=== PATIENT | female | born 1960 | race Caucasian/White ===

== ENCOUNTER 2024-10-30 12:57 | Outpatient (REF) | payer BC, SELFPAY ==
--- NOTE | ~2024-10-30 | US_ITS ---
Procedure: 1. Endovascular ablation of the right greater saphenous vein 2. Ultrasound-guided foam sclerotherapy right lower extremity varicose veins HISTORY: Varicose veins INDICATIONS: Symptomatically varicose veins left lower extremity. Symptoms include pain, aching and active ulceration at the ankle (C6) PROCEDURE/FINDINGS: Informed consent was obtained following a discussion of the risks and benefits of the procedure with the patient. The patient was placed supine on the ultrasound procedure table. Preliminary ultrasound demonstrates dilated refluxing right greater saphenous vein as well as numerous branch varicosities above and below the knee. Sites were marked on the right anterior thigh and medial leg . The right leg was sterilely prepped and draped. Following the administration of 1% lidocaine for local anesthesia, the greater saphenous vein was accessed with a 21-gauge micropuncture needle under direct ultrasound guidance. The needle was exchanged for the transitional dilator over a 0.018 guidewire. A 0.035 guidewire was then advanced to the saphenofemoral junction. The VenaSeal sheath was then inserted over the wire and positioned 10 cm from the saphenofemoral junction. VenaSeal glue was then delivered along the length of the greater saphenous vein while retracting the catheter with compression at the saphenofemoral junction to prevent glue from traveling forward. The delivery device was removed and hemostasis was achieved with manual compression. Postprocedure ultrasound demonstrates successful occlusion of the treated veins with widely patent and compressible saphenofemoral junction. Then, the branch varicosities above the knee and [id number]-[id number] were accessed with 2 separate 23-gauge butterfly needles under direct ultrasound guidance. Sclerotherapy was performed at both sites using 1% Sotradecol and a 1-4 ratio with room air. Treated veins include branch varicosities of the ASD as well as branch varicosities of the GSV. The accesses were removed. Posttreatment ultrasound demonstrates successful occlusion of the treated veins. A compression stocking was applied to the treated area Patient tolerated the procedure well without immediate complication. US/US Vein Inj Sclerosant Multi IMPRESSION: 1. VenaSeal ablation of the right greater saphenous vein. 2. Ultrasound-guided foam sclerotherapy right lower extremity varicose veins Follow-up ultrasound in 5-10 days Electronically signed by: Epifanio Scott MD 10/30/2024 03:28 PM [facility] [place] [place]
--- NOTE | ~2024-10-30 | US_ITS ---
Procedure: 1. Endovascular ablation of the right greater saphenous vein 2. Ultrasound-guided foam sclerotherapy right lower extremity varicose veins HISTORY: Varicose veins INDICATIONS: Symptomatically varicose veins left lower extremity. Symptoms include pain, aching and active ulceration at the ankle (C6) PROCEDURE/FINDINGS: Informed consent was obtained following a discussion of the risks and benefits of the procedure with the patient. The patient was placed supine on the ultrasound procedure table. Preliminary ultrasound demonstrates dilated refluxing right greater saphenous vein as well as numerous branch varicosities above and below the knee. Sites were marked on the right anterior thigh and medial leg . The right leg was sterilely prepped and draped. Following the administration of 1% lidocaine for local anesthesia, the greater saphenous vein was accessed with a 21-gauge micropuncture needle under direct ultrasound guidance. The needle was exchanged for the transitional dilator over a 0.018 guidewire. A 0.035 guidewire was then advanced to the saphenofemoral junction. The VenaSeal sheath was then inserted over the wire and positioned 10 cm from the saphenofemoral junction. VenaSeal glue was then delivered along the length of the greater saphenous vein while retracting the catheter with compression at the saphenofemoral junction to prevent glue from traveling forward. The delivery device was removed and hemostasis was achieved with manual compression. Postprocedure ultrasound demonstrates successful occlusion of the treated veins with widely patent and compressible saphenofemoral junction. Then, the branch varicosities above the knee and guklb-[id number] were accessed with 2 separate 23-gauge butterfly needles under direct ultrasound guidance. Sclerotherapy was performed at both sites using 1% Sotradecol and a 1-4 ratio with room air. Treated veins include branch varicosities of the ASD as well as branch varicosities of the GSV. The accesses were removed. Posttreatment ultrasound demonstrates successful occlusion of the treated veins. A compression stocking was applied to the treated area Patient tolerated the procedure well without immediate complication. US/US venaseal vein closure IMPRESSION: 1. VenaSeal ablation of the right greater saphenous vein. 2. Ultrasound-guided foam sclerotherapy right lower extremity varicose veins Follow-up ultrasound in 5-10 days Electronically signed by: Epifanio Scott MD 10/30/2024 03:28 PM [facility]
== END 2024-10-30 12:58 | disposition home or self-care (01) ==
LOC: HO.US 12:57
PROVIDERS: PCP Neuromusculoskeletal Medicine, Sports Medicine; Visit Provider Student in an Organized Health Care Education/Training Program
DX: I83.013 Varicose veins of right lower extremity with ulcer of ankle (principal)
CPT/HCPCS: 36471; 36482

== ENCOUNTER → 2024-10-30 13:00 | Outpatient (BNV) | payer BC, SELFPAY | PROVIDERS: PCP Neuromusculoskeletal Medicine, Sports Medicine; Visit Provider Student in an Organized Health Care Education/Training Program | DX: I83.013 Varicose veins of right lower extremity with ulcer of ankle (principal) | CPT/HCPCS: 36471; 36482; 76942 ==

== ENCOUNTER 2024-11-03 12:31 | Outpatient (REF) | payer BC, SELFPAY ==
--- NOTE | ~2024-11-03 | US_ITS ---
Procedure: 1. Endovascular ablation of the left greater saphenous vein 2. Ultrasound-guided foam sclerotherapy left lower extremity varicose veins HISTORY: Varicose veins INDICATIONS: Symptomatically varicose veins bilateral lower extremity. Symptoms include pain, aching , swelling and active ulceration at the right ankle (C6), C4 left) PROCEDURE/FINDINGS: Informed consent was obtained following a discussion of the risks and benefits of the procedure with the patient. The patient was placed supine on the ultrasound procedure table. Preliminary ultrasound demonstrates dilated refluxing left greater saphenous vein as well as numerous branch varicosities above and below the knee. Sites were marked on the left anterior thigh and medial leg . The left leg was sterilely prepped and draped. Following the administration of 1% lidocaine for local anesthesia, the greater saphenous vein was accessed with a 21-gauge micropuncture needle under direct ultrasound guidance. The needle was exchanged for the transitional dilator over a 0.018 guidewire. A 0.035 guidewire was then advanced to the saphenofemoral junction. The VenaSeal sheath was then inserted over the wire and positioned 10 cm from the saphenofemoral junction. VenaSeal glue was then delivered along the length of the greater saphenous vein while retracting the catheter with compression at the saphenofemoral junction to prevent glue from traveling forward. The delivery device was removed and hemostasis was achieved with manual compression. Postprocedure ultrasound demonstrates successful occlusion of the treated veins with widely patent and compressible saphenofemoral junction. Then, the branch varicosities above the knee were accessed with 2 separate 23-gauge butterfly needles under direct ultrasound guidance. Sclerotherapy was performed at both sites using 1% Sotradecol and a 1-4 ratio with room air. Treated veins include branch varicosities of the GSV. The accesses were removed. Posttreatment ultrasound demonstrates successful occlusion of the treated veins. A compression stocking was applied to the treated area Patient tolerated the procedure well without immediate complication. US/US Vein Inj Sclerosant Multi IMPRESSION: 1. VenaSeal ablation of the left greater saphenous vein. 2. Ultrasound-guided foam sclerotherapy left lower extremity varicose veins Follow-up ultrasound in 5-10 days Electronically signed by: Epifanio Scott MD 11/03/2024 02:25 PM [facility]
--- NOTE | ~2024-11-03 | US_ITS ---
Procedure: 1. Endovascular ablation of the left greater saphenous vein 2. Ultrasound-guided foam sclerotherapy left lower extremity varicose veins HISTORY: Varicose veins INDICATIONS: Symptomatically varicose veins bilateral lower extremity. Symptoms include pain, aching , swelling and active ulceration at the right ankle (C6), C4 left) PROCEDURE/FINDINGS: Informed consent was obtained following a discussion of the risks and benefits of the procedure with the patient. The patient was placed supine on the ultrasound procedure table. Preliminary ultrasound demonstrates dilated refluxing left greater saphenous vein as well as numerous branch varicosities above and below the knee. Sites were marked on the left anterior thigh and medial leg . The left leg was sterilely prepped and draped. Following the administration of 1% lidocaine for local anesthesia, the greater saphenous vein was accessed with a 21-gauge micropuncture needle under direct ultrasound guidance. The needle was exchanged for the transitional dilator over a 0.018 guidewire. A 0.035 guidewire was then advanced to the saphenofemoral junction. The VenaSeal sheath was then inserted over the wire and positioned 10 cm from the saphenofemoral junction. VenaSeal glue was then delivered along the length of the greater saphenous vein while retracting the catheter with compression at the saphenofemoral junction to prevent glue from traveling forward. The delivery device was removed and hemostasis was achieved with manual compression. Postprocedure ultrasound demonstrates successful occlusion of the treated veins with widely patent and compressible saphenofemoral junction. Then, the branch varicosities above the knee were accessed with 2 separate 23-gauge butterfly needles under direct ultrasound guidance. Sclerotherapy was performed at both sites using 1% Sotradecol and a 1-4 ratio with room air. Treated veins include branch varicosities of the GSV. The accesses were removed. Posttreatment ultrasound demonstrates successful occlusion of the treated veins. A compression stocking was applied to the treated area Patient tolerated the procedure well without immediate complication. US/US venaseal vein closure IMPRESSION: 1. VenaSeal ablation of the left greater saphenous vein. 2. Ultrasound-guided foam sclerotherapy left lower extremity varicose veins Follow-up ultrasound in 5-10 days Electronically signed by: Epifanio Scott MD 11/03/2024 02:[address] [facility]
--- OUTSIDE RECORDS SUMMARY | 2024-11-03 14:31 | XMS_ITS | Encounter Summary ---
Author Organization [facility] Address [address] [place] [address] Care Team Providers Care Burlap Spreader Name Role Phone Desiree Alas PA-C Primary Care Provi sherin Encounter Details Date Type Department Care Team (Late st Contact Info) Description 10/25/[address] [phone] Desiree Alas PA-C [address] [place] [phone] Social History Tobacco Use Types Packs/Day Years Used Date Smoking Tobacco: Never Smokeless Tobacco: Never Alcohol Use Standard Drinks/Week Comments Never 0 (1 standard drink = 0.6 oz pur e alcohol) PHQ-2 Answer Date Recorded PHQ-2 Total Score 0 10/23/2024 Sex and Gender Information Value Date Recorded Sex Assigned at Female 10/23/2024 11:03 AM EST Gender Identity Female 01/10/2021 5:51 PM EDT Sexual Orientation Heterosexual (straight) 01/10 5:51 PM EDT documented as of this encounter Miscellaneous Notes * Telephone Encounter - Kamilla Milian MA - 10/26/2024 3:42 PM EST Spoke with Johanna and she is aware of labs and not to do Cholesterol panel. * Telephone Encounter - Kamilla Milina MA - 10/26/2024 9:36 AM EST Left message for Johanna to call for lab results. * Telephone Encounter - Desiree Alas PA-C - 10/25/2024 7:50 AM EST Please let patient know that I received the blood work done by her employer. They checked a cholesterol and a fasting blood sugar. I presume she was fasting for her cholesterol. It is little up but we will discuss it at her physical just watch diet and exercise. I do want her to have the rest of her blood work done at [facility]. When she does go there she can tell them not to dothe cholesterol panel because it was already done the rest of the stuff should be covered by insurance and is necessary. documented in this encounter Plan of Treatment Upcoming Encounters Date Type Department Care Team (Late st Contact Info) Description 01/25/2025 9:00 AM EDT Office Visit [address] [place] [address] Desiree Alas PA-C [address] [place] [address] documented as of this encounter Visit Diagnoses Not on filedocumented in this encounter Care Teams Burlap Spreader Relationship Specialty Start Date End Date Desiree Alas PA-C [address] [place] [address] PCP - General Internal Medicine 10/23/24 documented as of this encounter
--- OUTSIDE RECORDS SUMMARY | 2024-11-03 14:31 | XMS_ITS | Clinical Summary ---
Author Organization [facility] Address [address] [place] [address] Care Team Providers Care Commercial Sewing Instructor Name Role Phone Desiree Alas PA-C Primary Care Provi sherin Allergies Active Allergy Reactions Criticality Noted Date Comments Meperidine Nausea And Vomiting 09/25/2013 Medications Medication Sig Dispensed Refills Start Date End Date Status gabapentin (NEURONTIN) 300 MG capsule 1 capsule (300 mg total). 10/18/2024 Active Active Problems Problem Noted Date Diagnosed Date Obesity (BMI 30-39.9) 12/02/2015 Venous stasis of lower extremity 05/03/2015 Hypothyroidism 09/25/2013 Encounters Date Type Department Care Team Description 10/25/[address] [phone] Desiree Alas PA-C 10/23/2024 11:30 AM EST Office Visit [address] [phone] Desiree Alas PA-C Hypothyroidism, unspecified type (Primary Dx); Obesity (BMI 30-39.9); Venous stasis of lower extremity; Screen for colon cancer 10/23/[address] [phone] Desiree Alas PA-C 10/23/2024 Travel from Last 3 Months Immunizations Name Administration Dates Next Due Covid-19 MRNA Vaccine - Pfizer 12+ (Purple Cap) 03/01/2021,02/08/2021 Family History Medical History Relation Name Comments Chronic Kidney Disease Father Diabetes Father Relation Name Status Comments Father Social History Tobacco Use Types Packs/Day Years Used Date Smoking Tobacco: Never Smokeless Tobacco: Never Tobacco Cessation:Counseling Given: Not Answered Alcohol Use Standard Drinks/Week Comments Never 0 (1 standard drink = 0.6 oz pur e alcohol) PHQ-2 Answer Date Recorded PHQ-2 Total Score 0 10/23/2024 Sex and Gender Information Value Date Recorded Sex Assigned at Female 10/23/2024 11:03 AM EST Gender Identity Female 01/10/2021 5:51 PM EDT Sexual Orientation Heterosexual (straight) 01/10 5:51 PM EDT Last Filed Vital Signs Vital Sign Reading Time Taken Comments Blood Pressure 152/80 10/23/2024 12:08 PM EST Pulse 76 10/23/2024 11:16 AM EST Temperature 36.3 ??C (97.3 ??F) 10/23/2024 1 1:16 AM EST Respiratory Rate 17 10/23/2024 11:1 6 AM EST Oxygen Saturation 98% 10/23/2024 11: 16 AM EST Inhaled Oxygen Concentration - - Weight 94.3 kg (207 lb 12.8 oz) 025 11:16 AM EST Height 154.9 cm (5' 1 ) 10/23/2024 11:1 6 AM EST Body Mass Index 39.26 10/23/2024 11:16 AM EST Plan of Treatment Upcoming Encounters Date Type Department Care Team (Late st Contact Info) Description 01/25/2025 9:00 AM EDT Office Visit [address] [phone] Desiree Alas PA-C [address] [place] [address] Health Maintenance Due Date Last Done Comments Hepatitis C Virus Screening 1960 HIV Screening 1975 Physical 1980 DTaP/Tdap/Td Vaccines (1 - Tdap) 1981 Pap Smear (Ages 21-65) 1983 Mammogram 2002 Colonoscopy 2007 Pneumococcal Vaccines 50+ (1 of 1 - PCV) 2012 Zoster (Shingles) Vaccine (1 of 2) 2012 Influenza Vaccine 05/11/2024 COVID-19 Vaccine (3 2023-2 5 season) 2024 03/01/2021, 02/08/2021 RSV Vaccine 60 years and older and Patients (1 - 1-dose 75+ series) 2037 Hepatitis B Vaccines Aged Out No long er eligible based on patient's age to complete this topic Care Teams Commercial Sewing Instructor Relationship Specialty Start Date End Date Desiree Alas PA-C [address] [place] [address] PCP - General Internal Medicine 10/23/24
--- OUTSIDE RECORDS SUMMARY | 2024-11-03 14:31 | XMS_ITS | Encounter Summary ---
Author Organization [facility] Address [address] [place] [address] Care Team Providers Care Artificial Glass Eye Maker Name Role Phone Desiree Alas PA-C Primary Care Provi hserin Encounter Details Date Type Department Care Team (Latest Contact Info) Description 10/23/2024 Travel Social History Tobacco Use Types Packs/Day Years [...] PM EDT documented as of this encounter Plan of Treatment Upcoming Encounters Date Type Department Care Team (Late st Contact Info) Description 01/25/2025 9:00 AM EDT Office Visit [address] [place] [phone] Desiree Alas PA-C [address] [place] [address] documented as of this encounter Visit Diagnoses Not on filedocumented in this encounter Care Teams Artificial Glass Eye Maker Relationship Specialty Start Date End Date Desiree Alas PA-C [address] [place] [address] PCP - General Internal Medicine 10/23/24 documented as of this encounter
--- OUTSIDE RECORDS SUMMARY | 2024-11-03 14:31 | XMS_ITS | Clinical Summary ---
Author Organization [facility] Address [address] [place] [address] Care Team Providers Care Accounts Receivable Associate Name Role Phone Roxy Toure PA-C Primary Care Provider Allergies Active Allergy Reactions Criticality Noted Date Comments Meperidine Nausea And Vomiting 05/03/2015 Medications No known medications Active Problems Problem Noted Date Diagnosed Date Obesity (BMI 30-39.9) 12/02/2015 Venous stasis of lower extremity 05/03/2015 Family History Medical History Relation Name Comments Coronary artery disease Father sten ts Diabetes Father Diabetes Son Relation Name Status Comments Father Son Social History Tobacco Use Types Packs/Day Years Used Date Smoking Tobacco: Never Alcohol Use Standard Drinks/Week Comments No 0 (1 standard drink = 0.6 oz pur e alcohol) Sex and Gender Information Value Date Recorded Sex Assigned at Not on file Gender Identity Not on file Sexual Orientation Not on file Job Start Date Occupation Industry Not on file Not on file Not on file Last Filed Vital Signs Vital Sign Reading Time Taken Comments Blood Pressure 122/84 12/02/2015 7:48 AM EST Pulse 76 12/02/2015 7:48 AM EST Temperature - - Respiratory Rate 18 12/02/2015 7:48 AM EST Oxygen Saturation - - Inhaled Oxygen Concentration - - Weight 88.5 kg (195 lb) 12/02/2015 7:48 AM EST Height 156.2 cm (5' 1.5 ) 12/02/2015 7:48 AM EST Body Mass Index 36.25 12/02/2015 7:48 AM EST Plan of Treatment Health Maintenance Due Date Last Done Comments Hepatitis C Screening 1960 Depression Screening 1974 DTap / Tdap / Td (1 - Tdap) 1981 Cervical Cancer Screening (Pap Smear) 1983 Colon Cancer Screening (Colonoscopy) 2007 Breast Cancer Screening (Mammogram) 2012 Shingrix-Zoster Vaccine (1 o f 2) 2012 Preventative Health Evaluation 12/02/2016 12/02/2015 COVID-19 Vaccine (3 - 2023-2 5 season) 2024 03/01/2021, 02/08/2021 Influenza Vaccine (#1) 2024 RSV Adult > 60+ Yrs or (1 - 1-dose 75+ series) 2037 Hepatitis B Vaccines Aged Out No long er eligible based on patient's age to complete this topic Pneumococcal Vaccine Aged Out No long er eligible based on patient's age to complete this topic RSV Ped < 20 months Aged Out No longe r eligible based on patient's age to complete this topic Care Teams Accounts Receivable Associate Relationship Specialty Start Date End Date Roxy Toure PA-C PCP - General Family Medicine 05/03/15
--- OUTSIDE RECORDS SUMMARY | 2024-11-03 14:31 | XMS_ITS | Clinical Summary ---
Author Organization [facility] Address [address] [place] [address] Phone Care Team Providers Care Utility Clerk Name Role Phone Roxy Toure Primary Care Provider [phone] Encounters Date Type Department Care Team Description 08/04/2024 2:15 PM EDT - 08/04/2024 11:59 PM EDT Hospital Encounter [facility] Ultrasound [address] [place] [phone] Child, HO Godfrey Venous insufficiency (chronic) (peripheral) Discharge Disposition: Home or Self Care from Last 3 Months Immunizations Name Administration Dates Next Due Pfizer SARS-CoV-2 COVID-19, mRNA, LNP-S, preservative free 03/01/2021,02/08/2021 Social History Tobacco Use Types Packs/Day Years Used Date Smoking Tobacco: Never Assessed Sex and Gender Information Value Date Recorded Sex Assigned at Not on file Gender Identity Not on file Sexual Orientation Not on file Plan of Treatment Health Maintenance Due Date Last Done Comments Breast Cancer Screening 1960 DTaP,Tdap,and Td Vaccines (1 - Tdap) 1981 Cervical Cancer Screening: P ap Smear 1983 Zoster Vaccines (1 of 2) 2012 Cholesterol Screening (Lipid Panel) 11/10/2023 Colorectal Cancer Screening: Colonoscopy 11/10/2023 Depression Screening 11/10/2023 HIV Screening 11/10/2023 Hepatitis C Screening 11/10/2023 Social Influencers of Health Screening 11/10/2023 COVID-19 Vaccine (3 - 2023-2 5 season) 2024 03/01/2021, 02/08/2021 Influenza Vaccine (#1) 2024 RSV Immunization Patients 60 + Years Old (1 - 1-dose 75+ series) 2037 HIB Vaccines Aged Out No longer eligi ble based on patient's age to complete this topic HPV Vaccines Aged Out No longer eligi ble based on patient's age to complete this topic Hepatitis A Vaccines Aged Out No long er eligible based on patient's age to complete this topic Hepatitis B Vaccines Aged Out No long er eligible based on patient's age to complete this topic IPV Vaccines Aged Out No longer eligi ble based on patient's age to complete this topic MMR Vaccines Aged Out No longer eligi ble based on patient's age to complete this topic Meningococcal ACWY Vaccine Aged Out N o longer eligible based on patient's age to complete this topic Pneumococcal Vaccine: Pediatrics (0 to 5 Years) and At-Risk Patients (6 to 64 Years) Aged Out No longer eligible b ased on patient's age to complete this topic RSV Immunization Patients Under 20 months Aged Out No longer eligible b ased on patient's age to complete this topic Varicella Vaccines Aged Out No longer eligible based on patient's age to complete this topic Procedures Procedure Name Priority Date/Time Associated Diagnosis Comments US DUPLEX VENOUS STUDY BILAT Routine 08/04/2024 4:38 PM EDT Venous insufficiency (chronic) (peripheral) from Last 3 Months Results * US DUPLEX VENOUS STUDY BILAT (08/04/2024 4:38 PM EDT) Anatomical Region Laterality Modality Ultrasound 08/04/2024 2:21 PM EDT Narrative 08/04/2024 4:38 PM EDT [facility] Diagnostic Imaging Department [address] [place] [id number] Patient: ??MARTA RENNER ?/Age/Sex: 1960 - 63 - F Unit#: ??[id number] ? Location/Status: ??SPDIUS/REG CLI ? Mnemonic/Ordering Site: ??DUPVEBILCO/SPUS Ordering Physician: ??CHILD,EPIFANIO TAYLOR Duplex Venous Study Bilat - 08/04/24 - 1499 Report Status:Signed PROCEDURE: US Duplex Venous Study Bilat INDICATION: Leg pain, wounds TECHNIQUE: ??2-D matias scale, color Doppler ultrasound of the lower extremity veins. COMPARISON: No priors available. FINDINGS: The deep veins of the right lower extremity are patent. The right greater saphenous vein measures 7 mm in the upper thigh, 4 mm in the mid thigh, and 6 mm in the lower thigh. There is 5 seconds reflux in the greater saphenous vein in the lower thigh. There is 2 to 3 seconds reflux in the greater saphenous vein throughout the calf. No reflux in the right short saphenous vein. Multiple refluxing varicosities are seen in the right mid thigh with reflux measuring 4 to 5 seconds. The deep veins of the left lower extremity are patent. The left greater saphenous vein measures 7 mm in the upper thigh. ??The greater saphenous vein in the mid and lower thigh is replaced by multiple varicosities. There is approximately 2 to 3 seconds of reflux at the left greater saphenous vein near the saphenofemoral junction. ??There is 2 to 3 seconds of reflux throughout the greater saphenous vein and associated varicosities throughout the thigh and calf . No reflux in the left short saphenous vein. IMPRESSION: NO DEEP VENOUS THROMBOSIS IN THE LOWER EXTREMITIES. REFLUX IN THE GREATER SAPHENOUS VEINS BILATERALLY. Dictating Physician: ??MARTHA FRANKLIN MD Electronically Signed by: ??MARTHA FRANKLIN MD Dic Date/Time: ??08/04/24 1621 Sign date/Time: ??08/04/24 1638 Procedure Note Martha Franklin MD - 08/12/2024 [facility] Diagnostic Imaging Department [address] [place] [address] Patient: ZURDOMARTA LevineB./Age/Sex: 1960 - 63 - F Unit#: [id number] Location/Status: SPDIUS/REG CLI Mnemonic/Ordering Site: DUPVEBILCO/SPUS Ordering Physician: EPIFANIO SANCHEZ PA-C US Duplex Venous Study Bilat - 08/04/24 - 1500 Report Status:Signed PROCEDURE: US Duplex Venous Study Bilat INDICATION: Leg pain, wounds TECHNIQUE: 2-D matias scale, color Doppler ultrasound of the lowerextremity veins. COMPARISON: No priors available. FINDINGS: The deep veins of the right lower extremity are patent. The right greater saphenous vein measures 7 mm in the upper thigh, 4 mm inthe mid thigh, and 6 mm in the lower thigh. There is 5 seconds reflux in the greater saphenous vein in the lowerthigh. There is 2 to 3 seconds reflux in the greater saphenous vein throughoutthe calf. No reflux in the right short saphenous vein. Multiple refluxing varicosities are seen in the right mid thigh withreflux measuring 4 to 5 seconds. The deep veins of the left lower extremity are patent. The left greater saphenous vein measures 7 mm in the upper thigh. Thegreater saphenous vein in the mid and lower thigh is replaced by multiplevaricosities. There is approximately 2 to 3 seconds of reflux at the left greatersaphenous vein near the saphenofemoral junction. There is 2 to 3 seconds ofreflux throughout the greater saphenous vein and associated varicositiesthroughout the thigh and calf . No reflux in the left short saphenous vein. IMPRESSION: NO DEEP VENOUS THROMBOSIS IN THE LOWER EXTREMITIES. REFLUX IN THE GREATER SAPHENOUS VEINS BILATERALLY. Dictating Physician: MARTHA FRANKLIN MD Electronically Signed by: MARTHA FRANKLIN MD Dic Date/Time: 08/04/24 1621 Sign date/Time: 08/04/24 1638 Epifanio TEAGUE IMG US PROCEDURES from Last 3 Months Care Teams Utility Clerk Relationship Specialty Start Date End Date Roxy Toure PA [address] [address] PCP - General Family Medicine 05/03/15
--- OUTSIDE RECORDS SUMMARY | 2024-11-03 14:31 | XMS_ITS | Encounter Summary ---
Author Organization [facility] Address [address] [place], [place] [id number] Care Team Providers Care Electronic Gaming Device Supervisor Name Role Phone Desiree Alas PA-C Primary Care Provi sherin Reason for Visit * Reason Comments Establish Care Encounter Details Date Type Department Care Team ([facility] st Contact Info) Description 10/23/2024 11:30 AM EST Office Visit [address] [phone] Desiree Alas PA-C [address] [place] [address] Hypothyroidism, unspecified type (Primary Dx); Obesity (BMI 30-39.9); Venous stasis of lower extremity; Screen for colon cancer Social History Tobacco Use Types Packs/Day Years [...] PM EDT documented as of this encounter Last Filed Vital Signs Vital Sign Reading [...] Mass Index 39.26 10/23/2024 11:16 AM EST documented in this encounter Progress Notes * Desiree Alas PA-C - 10/23/2024 12:04 PM EST Images from the original note were not included. Assessment & Plan 1. Hypothyroidism, unspecified type History of. Patient no longer on thyroid medication. Will check a TSH. 2. Obesity (BMI 30-39.9) Will discuss further at her physical. 3. Venous stasis of lower extremity Following with vascular. Now with a venous stasis ulcer of the lower extremity watch closely by vascular. - 4. Screen for colon cancer Orders for Cologuard placed. - Cologuard (UNI5) 5. Elevated blood pressure reading States she checks her blood pressure at home occasionally and it is typically 120/70. She has no known history of hypertension. When she returns for her physical she will bring her home blood pressure cuff and as well. Patient will sign release of medical records. [facility]. Will book patient for her annual exam. Patient understands and agrees with the plan of care Return in about 3 months (around 01/21/2025) for ANNUAL EXAM with ME. Communication barriers and lifestyle preferences were addressed with the patient. The care plan including medications and self-management goals were reviewed to the best of the patient???s abilities.All questions and concerns were answered. Patient and/or family verbalized understanding of the plan of care. Subjective Johanna Samayoa is a 63 y.o. female who presents for office visit. Chief Complaint Patient presents with Establish Care HPI Johanna presents the office today to establish care. Unfortunately we do not have her previous medical records. She had been following with the PCP up until the end of last year. She had recent blood work done at her job for annual screening. We do not have access to those results today. According to epic her past medical history is significant for 1. Hypothyroidism-patient states she was diagnosed several years ago was on thyroid medication and then was told she did not have hypothyroidism so they took her off of it. 2. Obesity 3. Venous stasis of the lower extremities with venous ulcers-patient follows with Dr. Kim at the endovascular center and was [facility]. She has 2 ulcers on her lower extremity that are being treated by them. She is scheduled for a vascular procedure next week. She is on Neurontin for pain. She is scheduled to see BOARD WRITER shortly. She is up-to-date with her mammogram. She has never had a colonoscopy nor does she want to have one. She would consider Cologuard. Patient Active Problem List Diagnosis Hypothyroidism Obesity (BMI 30-39.9) Venous stasis of lower extremity Current Outpatient Medications Medication Sig Dispense Refill gabapentin (NEURONTIN) 300 MG capsule 1 capsule (300 mg total). No current facility-administered medications for this visit. Pertinent History: The patient's past medical, surgical, social, and family history were all reviewed and updated as appropriate. Review of Systems Eyes: Negative for visual disturbance. Respiratory: Negative for shortness of breath. Cardiovascular: Negative for chest pain, palpitations and leg swelling. Endocrine: Negative for polydipsia and polyuria. Objective Vitals: 10/23/24 1116 10/23/24 1208 BP: (!) 132/90 (!) 152/80 Pulse: 76 Resp: 17 Temp: 97.3 ??F (36.3 ??C) SpO2: 98% Body mass index is 39.26 kg/m??. Blood pressures are symmetric Physical Exam Vitals reviewed. Constitutional: Appearance: Normal appearance. Cardiovascular: Rate and Rhythm: Normal rate and regular rhythm. Heart sounds: Normal heart sounds. Pulmonary: Effort: Pulmonary effort is normal. Breath sounds: Normal breath sounds. Musculoskeletal: Right lower leg: No edema. Left lower leg: No edema. Neurological: Mental Status: She is alert. Psychiatric: Mood and Affect: Mood normal. Behavior: Behavior normal. PHQ-9 Total Score: 0 TAMELA-7 Total Score: 0 Disclaimer: [facility] [employer] Information voice-recognition is used to prepare this typewritten note. Although each note is personally edited for syntactic and grammatical errors, unintended translational errors can occur.Please contact me if there are any questions about the content of this note. Desiree Alas PA-C documented in this encounter Plan of Treatment Upcoming Encounters Date Type Department Care Team (Late st Contact Info) Description 01/25/2025 9:00 AM EDT Office Visit [facility] [address] [facility] [address] [place] [address] Desiree Alas PA-C [address] [place] [address] Scheduled Orders Name Type Priority Associated Diagnoses Orde r Schedule Complete Blood Count, with Differential Lab Routine Hypothyroidism, unspecified type Obesity (BMI 30-39.9) Venous stasis of lower extremity Ordered: 10/23/2024 BASIC METABOLIC PANEL Lab Routine Hypothyroidism, unspecified type Obesity (BMI 30-39.9) Venous stasis of lower extremity Ordered: 10/23/2024 HEPATIC FUNCTION PANEL Lab Routine Hypothyroidism, unspecified type Obesity (BMI 30-39.9) Venous stasis of lower extremity Ordered: 10/23/2024 Lipid panel with nonHDL Lab Routine Hypothyroidism, unspecified type Obesity (BMI 30-39.9) Venous stasis of lower extremity Ordered: 10/23/2024 Urinalysis with Microscopic Lab Routine Hypothyroidism, unspecified type Obesity (BMI 30-39.9) Venous stasis of lower extremity Ordered: 10/23/2024 TSH REFLEX FREE T4 Lab Routine Hypothyroidism, unspecified type Obesity (BMI 30-39.9) Venous stasis of lower extremity Ordered: 10/23/2024 Cologuard ([employer]) Lab Routine Screen for colon cancer Ordered: 10/23/2024 documented as of this encounter Visit Diagnoses Diagnosis Hypothyroidism, unspecified type- Primary Obesity (BMI 30-39.9) Venous stasis of lower extremity Unspecified venous (peripheral) insufficiency Screen for colon cancer Special screening for malignant neoplasms, colon documented in this encounter Care Teams Electronic Gaming Device Supervisor Relationship Specialty Start Date End Date Desiree Alas PA-C [address] [place] [address] PCP - General Internal Medicine 10/23/24 documented as of this encounter
--- OUTSIDE RECORDS SUMMARY | 2024-11-03 14:31 | XMS_ITS | Encounter Summary ---
Author Organization [facility] Address [address] [place] [id number] Care Team Providers Care Magnet Valve Assembler Name Role Phone Desiree Alas PA-C Primary Care Provi sherin Encounter Details Date Type Department Care Team (Late st Contact Info) Description 10/23/[address] [phone] Desiree Alas PA-C [address] [place] [address] Social History Tobacco Use Types Packs/Day Years [...] Telephone Encounter - Kamilla Milian MA - 10/24/2024 1:44 PM EST Printed labs and put on provider's in box * Telephone Encounter - Desiree Alas PA-C - 10/23/2024 11:52 AM EST Need labs done at [facility] by other md documented in this encounter Plan of Treatment Upcoming Encounters Date Type Department Care Team (Late st Contact Info) Description 01/25/2025 9:00 AM EDT Office Visit [facility] [address] [facility] [address] [place] [address] Desiree Alas PA-C [address] [place] [address] documented as of this encounter Visit Diagnoses Not on filedocumented in this encounter Care Teams Magnet Valve Assembler Relationship Specialty Start Date End Date Desiree Alas PA-C [address] [place] [address] PCP - General Internal Medicine 10/23/24 documented as of this encounter
[2024-11-03] MEDS: Lidocaine HCl 1 % MPF 5 ML VIAL SUBCUT (14:33)
[2024-11-03] MEDS: Sodium Tetradecyl Sulfate 1% 2 ML VIAL 0.5 ML INTRAVARIC (14:43)
[2024-11-03] MEDS: Sodium Tetradecyl Sulfate 1% 2 ML VIAL 1 ML INTRAVARIC (14:45)
== END 2024-11-03 12:32 | disposition home or self-care (01) ==
LOC: HO.US 12:31
PROVIDERS: PCP Neuromusculoskeletal Medicine, Sports Medicine; Visit Provider Student in an Organized Health Care Education/Training Program
DX: I83.12 Varicose veins of left lower extremity with inflammation (principal)
CPT/HCPCS: 36471; 36482; J2003

== ENCOUNTER → 2024-11-03 12:38 | Outpatient (BNV) | payer BC, SELFPAY | PROVIDERS: PCP Neuromusculoskeletal Medicine, Sports Medicine; Visit Provider Student in an Organized Health Care Education/Training Program | DX: I83.12 Varicose veins of left lower extremity with inflammation (principal) | CPT/HCPCS: 36471; 36482 ==

== ENCOUNTER → 2024-11-08 08:30 | Outpatient (BNV) | payer BC, SELFPAY | PROVIDERS: PCP Neuromusculoskeletal Medicine, Sports Medicine; Visit Provider Radiology Diagnostic Radiology | DX: I82.813 Embolism and thrombosis of superficial veins of lower extremities, bilateral (principal) | CPT/HCPCS: 93970 ==